=== PATIENT | female | born 1985 | race Caucasian/White ===

== ENCOUNTER 2021-07-25 09:31 | Outpatient (CLI) | payer OTHER | END 2021-07-25 11:21 | disposition home or self-care (01) | LOC: NST 09:31 | PROVIDERS: ATTEND Obstetrics & Gynecology | DX: Z34.83 Encounter for supervision of other normal pregnancy, third trimester (principal) ==

== ENCOUNTER → 2021-08-07 | Outpatient (CLI) | payer OTHER | END | disposition home or self-care (01) | LOC: RX STUDY 12-24 13:15 → NST 15:33 | PROVIDERS: ATTEND Obstetrics & Gynecology | DX: Z34.83 Encounter for supervision of other normal pregnancy, third trimester (principal) ==

== ENCOUNTER 2021-09-23 07:45 | Inpatient (IN) | payer OTHER ==
[~2021-09-23] VITALS: Ht 154.9 cm; Wt 3.2 kg
[2021-09-25] MEDS ORDERED: IRON325 MG PO (08:43)
[2021-09-25] MEDS ORDERED: PRENATAL CAPLE1 EAC1 PO (08:44)
[2021-09-28] MEDS ORDERED: MACRODANTIN100 MG PO ×2 (10:44)
[2021-09-28] MEDS ORDERED: KETO10TA2 PO ×2 (10:45)
[2021-09-28] MEDS ORDERED: OXYC1TAB9 PO ×2 (10:45)
== END 2021-09-28 12:47 | disposition home or self-care (01) | DRG 784 ==
LOC: OB/GYN 09-25 07:45 → O/R 09-25 08:19 → SURG-SUITE 09-25 08:19 → OB/GYN 09-25 09:15 → SURG-SUITE 09-25 14:07
PROVIDERS: ADMIT Obstetrics & Gynecology Maternal & Fetal Medicine; ATTEND Obstetrics & Gynecology Maternal & Fetal Medicine
PROC: 0UB70ZZ Excision of Bilateral Fallopian Tubes, Open Approach (ICD-10-PCS; 2021-09-25)
PROC: 0TQB0ZZ Repair Bladder, Open Approach (ICD-10-PCS; 2021-09-25)
PROC: 4A1HXFZ Monitoring of Products of Conception, Cardiac Rhythm, External Approach (ICD-10-PCS; 2021-09-25)
PROC: 10D00Z1 Extraction of Products of Conception, Low, Open Approach (ICD-10-PCS; principal; 2021-09-25 09:15)
DX: O82 Encounter for cesarean delivery without indication (principal); O71.5 Other obstetric injury to pelvic organs; O34.211 Maternal care for low transverse scar from previous cesarean delivery; N73.6 Female pelvic peritoneal adhesions (postinfective); Z30.2 Encounter for sterilization; Z3A.39 39 weeks gestation of pregnancy; Z37.0 Single live birth

== ENCOUNTER 2021-09-30 09:30 | Outpatient (CLI) | payer OTHER ==
[~2021-09-30 09:30] MED LIST: IRON325 MG PO; KETO10TA2 PO; MACRODANTIN100 MG PO; OXYC1TAB9 PO; PRENATAL CAPLE1 EAC1 PO
== END 2021-10-01 14:50 | disposition home or self-care (01) ==
LOC: RX STUDY 09:30
PROVIDERS: ATTEND Obstetrics & Gynecology Maternal & Fetal Medicine
DX: S37.23XA Laceration of bladder, initial encounter (principal)